=== PATIENT | female | born 1960 | race Caucasian/White ===

== ENCOUNTER 2020-04-22 14:41 | Emergency (ER) | payer OTHER, SELFPAY ==
--- NOTE | 2020-04-22 14:49 | ED.EYEPROB ---
HPI - Eye Problem General Chief complaint: Eye Problems Stated complaint: eyes swollen/dry/weeping Time Seen by Provider: 04/22/20 14:49 Source: patient and RN notes reviewed History of Present Illness HPI Narrative: Patient is a 60-year-old female who presents the urgent care with complaints of bilateral eye swelling, dryness and weeping. Patient states it started approximately 4 days ago and is worsening the last 2 days with increased swelling. Patient states swelling has improved on its own since this morning but she has a lot of clear drainage. Patient states that she has been taking Sudafed and has not been taking her blood pressure medication. Denies of any other upper respiratory symptoms. Denies of any fever, nausea, vomiting. Denies of any changes in vision. No other acute complaints. No acute distress noted. Patient aware of the plan of care. Some parts of this dictation were generated by voice recognition software and may contain typographical and/or grammatical inaccuracies. Related Data Home Medications Medication Instructions Recorded Confirmed albuterol sulfate INHALATION 04/22/20 escitalopram oxalate mg 04/22/20 hydrochlorothiazide 04/22/20 levothyroxine 04/22/20 metoprolol tartrate 04/22/20 Allergies Allergy/AdvReac Type Severity Reaction Status Date / Time No Known Allergies Allergy Unverified 09/12/17 13:45 Review of Systems Review of Systems: Narrative: CONSTITUTIONAL: Denies fever, chills, or sweats. EYES: Reports of bilateral eye dryness, swelling and weeping ENT: Denies rhinorrhea, congestion, sore throat, or otalgia. CARDIOVASCULAR: Denies chest pain, palpitations, or edema. RESPIRATORY: Denies cough or dyspnea. GASTROINTESTINAL: Denies abdominal pain, nausea, vomiting, or diarrhea. GENITOURINARY: Denies dysuria or hematuria. SKIN: Denies rash or itching. MUSCULOSKELETAL: Denies back pain, joint pain, or myalgia. NEUROLOGIC: Denies headache, numbness, or weakness. All other systems reviewed are negative, except as documented in HPI. PMFSH Comments At the time of my signature, I reviewed and agree with the nursing past medical, surgical, social, and family history. There is no relevant family history pertinent to the patient complaint. Exam Narrative: Exam Narrative: GENERAL: This is a well-nourished, well-developed patient, in no apparent distress. HEAD: normocephalic, atraumatic. EYES: PERRL. Sclera clear/white. Vision is grossly intact. Mild bilateral injected conjunctiva, with clear drainage and mild bilateral lower eyelid cheek junction EARS: External ears normal, auditory canals clear and without drainage, TMs normal without perforation. Hearing grossly intact. NOSE: External nose normal with no obvious nasal discharge, nares without redness, no rhinorrhea. THROAT: Mucous membranes moist NECK: Neck supple SKIN: warm, intact with no suspicious lesions or rash, good texture and turgor. NEURO: awake, alert, and oriented to person, place and time. There were no obvious focal neurologic abnormalities. EXTREMITIES: No clubbing, cyanosis, or edema. Course Vital Signs Vital signs: Vital Signs Temperature 97.6 F 04/22/20 14:50 Pulse Rate 59 L 04/22/20 14:50 Respiratory Rate 20 04/22/20 14:50 Blood Pressure 182/89 H 04/22/20 14:50 Pulse Oximetry 96 04/22/20 14:50 Temperature 97.6 F 04/22/20 14:50 Pulse Rate 59 L 04/22/20 14:50 Respiratory Rate 20 04/22/20 14:50 Blood Pressure 182/89 H 04/22/20 14:50 Pulse Oximetry 96 04/22/20 14:50 Reviewed-patient is informed that they may have pre-hypertension or hypertension based on a blood pressure reading in the department. I recommend the patient call the primary care provider listed on their discharge instructions or a physician of their choice this week to arrange follow-up for further evaluation of possible pre-hypertension or hypertension. Advised patient to stop taking the Sudafed due to hypertension a
[2020-04-22 14:50] VITALS: BP 182/89; PULSE 59; RESP 20; TEMP 36.4; O2SAT 96
== END 2020-04-22 15:19 | disposition home or self-care (01) ==
PROVIDERS: Emergency Provider Nurse Practitioner Family; PCP Family Medicine
DX: H10.13 Acute atopic conjunctivitis, bilateral (principal); I10 Essential (primary) hypertension; J44.9 Chronic obstructive pulmonary disease, unspecified; K21.9 Gastro-esophageal reflux disease without esophagitis; E03.9 Hypothyroidism, unspecified; F41.9 Anxiety disorder, unspecified
CPT/HCPCS: 99213; G0463